=== PATIENT | female | born 1955 | race Caucasian/White ===

== ENCOUNTER → 2020-07-18 | Outpatient (CLI) | payer BC | LOC: KOH-I 07-11 10:30 | DX: Z12.2 Encounter for screening for malignant neoplasm of respiratory organs (principal); F17.210 Nicotine dependence, cigarettes, uncomplicated; I25.10 Atherosclerotic heart disease of native coronary artery without angina pectoris; R91.8 Other nonspecific abnormal finding of lung field | CPT/HCPCS: 71271 ==

== ENCOUNTER → 2021-05-21 | Outpatient (CLI) | payer BC, MEDICARE | LOC: EXRD 12:44 | DX: R09.89 Other specified symptoms and signs involving the circulatory and respiratory systems (principal); I65.23 Occlusion and stenosis of bilateral carotid arteries | CPT/HCPCS: 93880 ==

== ENCOUNTER → 2021-06-16 | Outpatient (CLI) | payer BC | LOC: CT 12:08 → KOH-I 13:30 | DX: I65.23 Occlusion and stenosis of bilateral carotid arteries (principal); R09.89 Other specified symptoms and signs involving the circulatory and respiratory systems; Z00.00 Encounter for general adult medical examination without abnormal findings | CPT/HCPCS: 36415; 70498; 82565; Q9967 ==

== ENCOUNTER → 2021-07-20 | Outpatient (CLI) | payer BC | LOC: CT 13:00 | DX: F17.210 Nicotine dependence, cigarettes, uncomplicated (principal); R91.8 Other nonspecific abnormal finding of lung field | CPT/HCPCS: 71271 ==